=== PATIENT | male | born 1985 | race Caucasian/White ===

== ENCOUNTER 2022-07-03 17:24 | Emergency (ER) | payer SELFPAY ==
[~2022-07-03] VITALS: Ht 172.7 cm; Wt 86.2 kg
--- NOTE | 2022-07-03 23:00 | NUR ---
Patient was just called at this time to be PLACED IN ROOM AND CHECK VITAL SIGNS due to short staffing and high acuity (3 ICU patient) with a full ER, but patient was not present. PATIENT WAS TRIAGED OR BUT NOT SEEN BY ERMD.
== END 2022-07-03 23:00 | disposition left against medical advice (07) ==
LOC: ER 17:39
DX: Z53.21 Procedure and treatment not carried out due to patient leaving prior to being seen by health care provider (principal)